=== PATIENT | female | born 1975 | race Hispanic/Latino ===

== ENCOUNTER → 2019-07-07 | Outpatient (CLI) | payer MEDICAID | END | disposition home or self-care (01) | LOC: RAH 09:15 | PROVIDERS: ATTEND Internal Medicine Gastroenterology | DX: K76.0 Fatty (change of) liver, not elsewhere classified (principal); R10.13 Epigastric pain | CPT/HCPCS: 76700 ==

== ENCOUNTER 2019-07-19 07:43 | Day surgery (SDC) | payer MEDICAID ==
[~2019-07-19] VITALS: Ht 160 cm; Wt 104.3 kg
[~2019-07-19 07:43] MED LIST: IBUP-2784 PO; SODIUM CHLORIDE 0.9% 1000ML 1,000 ML IV ONE
[2019-07-19 08:59] VITALS: BP 132/64
[2019-07-19] MEDS ORDERED: PROPOFOL 1000 MG/100 ML 100 ML IV ONE (09:22)
[2019-07-19] MEDS ORDERED: LIDOCAINE HCL 1% 20 ML VIAL ONE (09:22)
[2019-07-19] MEDS ORDERED: GLYCOPYRROLATE 0.2 MG/ML 5 ML VIAL ONE (09:33)
[2019-07-19 09:49] VITALS: BP 105/69
[2019-07-19 09:54] VITALS: BP 118/70
[2019-07-19 09:59] VITALS: BP 119/69
[2019-07-19 10:04] VITALS: BP 120/76
[2019-07-19 10:17] VITALS: BP 125/71
== END 2019-07-19 10:25 | disposition home or self-care (01) ==
LOC: ENDO 07:43 → DAH 07:43 → ENDO 10:25
PROVIDERS: ATTEND Internal Medicine
DX: K59.00 Constipation, unspecified (principal); K29.50 Unspecified chronic gastritis without bleeding; K31.7 Polyp of stomach and duodenum; K64.0 First degree hemorrhoids; K21.0 Gastro-esophageal reflux disease with esophagitis; F17.210 Nicotine dependence, cigarettes, uncomplicated; Z79.899 Other long term (current) drug therapy; Z72.89 Other problems related to lifestyle; Z82.49 Family history of ischemic heart disease and other diseases of the circulatory system; Z83.3 Family history of diabetes mellitus
CPT/HCPCS: 43239; 43251; 45380; 88305; A4215; A4221; A4222; A4223; A4606; A4620; A4663; J2704; J3490; J7030; 45378

== ENCOUNTER → 2019-11-11 | Outpatient (CLI) | payer MEDICAID ==
[~2019-11-11] MED LIST changes: -SODIUM CHLORIDE 0.9% 1000ML 1,000 ML IV ONE
== END | disposition home or self-care (01) ==
LOC: RAH 13:47
PROVIDERS: ATTEND Internal Medicine Gastroenterology
DX: R93.3 Abnormal findings on diagnostic imaging of other parts of digestive tract (principal); M47.815 Spondylosis without myelopathy or radiculopathy, thoracolumbar region
CPT/HCPCS: 74018

== ENCOUNTER → 2020-06-05 | Outpatient (CLI) | payer MEDICAID | END | disposition home or self-care (01) | LOC: SLP 23:30 | PROVIDERS: ATTEND Surgery | DX: G47.33 Obstructive sleep apnea (adult) (pediatric) (principal) | CPT/HCPCS: 95810 ==

== ENCOUNTER 2021-09-10 05:35 | Observation (INO) | payer MEDICAID ==
[2021-09-09 11:20] LABS: BASOPHILS % (AUTO) 0.8 % (0.0-5.0); EOSINOPHILS % (AUTO) 0.6 % (0.0-8.0); HEMATOCRIT 33.7 % (36-48); LYMPHOCYTES % (AUTO) 17.7 % (21.0-51.0); MEAN CORPUSCULAR HEMOGLOBIN 19.2 pg (27.0-33.0); MEAN CORPUSCULAR HGB CONC 30.6 g/dL (32.0-36.0); MEAN CORPUSCULAR VOLUME 62.9 fL (79-99); MONOCYTES % (AUTO) 4.3 % (3.0-13.0); NEUTROPHILS % (AUTO) 76.3 % (40.0-77.0); PLATELET COUNT (AUTO) 245 K/uL (130-400); RED BLOOD CELL COUNT(AUTO) 5.36 MIL/uL (4.00-5.50); RED CELL DISTRIBUTION WIDTH 15.4 % (11.0-15.5); WHITE BLOOD COUNT (AUTO) 6.3 K/uL (4.8-10.8)
[2021-09-09 11:27] VITALS: BP 14/54
[~2021-09-10] VITALS: Ht 160 cm; Wt 68.9 kg
[2021-09-10] VITALS (18 sets, daily range): BP systolic 86–119; BP diastolic 49–68
[~2021-09-10 05:35] MED LIST changes: +BISA5TAB12 PO; +CYAN-35 PO; +FOLI20CA PO; -IBUP-2784 PO; +LINA290C PO
[2021-09-10] MEDS ORDERED: CEFAZOLIN SODIUM 1 GM VIAL ONE (06:56)
[2021-09-10] MEDS ORDERED: LACTATED RINGERS 1000ML 1,000 ML IV ONE (06:56)
[2021-09-10] MEDS ORDERED: LEVO1TAB60 PO (07:36)
[2021-09-10] MEDS ORDERED: LEVO1TAB PO (07:36)
[2021-09-10] MEDS ORDERED: PROPOFOL 10 MG/ML 20ML VIAL IV ONE (08:33)
[2021-09-10] MEDS ORDERED: FENTANYL CITRATE PF 50 MCG/1 ML 2ML VIAL ONE ×3 (08:33→11:35)
[2021-09-10] MEDS ORDERED: LIDOCAINE PF 100MG/5ML (2%) SYRINGE 5ML ONE (08:33)
[2021-09-10] MEDS ORDERED: ROCURONIUM 10MG/1ML SYR 10 MG/ML ML ONE ×2 (08:34→10:09)
[2021-09-10] MEDS ORDERED: MIDAZOLAM HCL 1 MG/ML 2ML VIAL ONE (08:34)
[2021-09-10] MEDS ORDERED: GLYCOPYRROLATE 1 MG/5 ML SYRINGE ONE (08:50)
[2021-09-10] MEDS ORDERED: CEFAZOLIN SODIUM 2 GM VIAL IV ONE (08:55)
[2021-09-10] MEDS ORDERED: ONDANSETRON 4MG INJ ONE (09:00)
[2021-09-10] MEDS ORDERED: EPHEDRINE SULFATE 50 MG/ML AMPULE ONE (09:03)
[2021-09-10] MEDS ORDERED: NEOSTIGMINE 5MG/5ML SYR IV ONE (10:32)
[2021-09-10] MEDS ORDERED: KETOROLAC 30MG VIAL (30MG/ML) ONE (11:00)
[2021-09-10] MEDS: PROMETHAZINE HCL 25 MG/ML 1ML AMPULE IM PRN ×2 (12:49→19:51)
[2021-09-10] MEDS: MEPERIDINE-PF 75 MG/ML SYG IM PRN ×2 (12:49→19:53)
[2021-09-10] MEDS: DEXTROSE 5 %-0.45 % NACL 1,000 ML IV PRN ×2 (12:50→19:38)
[2021-09-10] MEDS ORDERED: BISACODYL 10 MG SUPP.RECT RC PRN (13:00)
[2021-09-10] MEDS ORDERED: ONDANSETRON 4MG INJ IVP PRN (13:00)
[2021-09-10] MEDS ORDERED: IBUPROFEN 600 MG TABLET PO PRN (13:00)
[2021-09-10] MEDS ORDERED: PROMETHAZINE HCL 25 MG/ML 1ML AMPULE IM PRN (13:00)
[2021-09-10] MEDS ORDERED: ACETAMINOPHEN WITH CODEINE 1 TAB TAB PO PRN (13:00)
[2021-09-10] MEDS: DOCUSATE SODIUM 100 MG CAP PO PRN (21:10)
[2021-09-10] MEDS: SIMETHICONE 80 MG TAB.CHEW PO PRN (21:10)
[2021-09-11] MEDS: DEXTROSE 5 %-0.45 % NACL 1,000 ML IV PRN (03:28)
[2021-09-11 03:30] VITALS: BP 100/62
[2021-09-11] MEDS: PROMETHAZINE HCL 25 MG/ML 1ML AMPULE IM PRN (03:42)
[2021-09-11] MEDS: MEPERIDINE-PF 75 MG/ML SYG IM PRN (03:43)
[2021-09-11 05:46] LABS: HEMATOCRIT 27.6 % (36-48); MEAN CORPUSCULAR HEMOGLOBIN 19.2 pg (27.0-33.0); MEAN CORPUSCULAR HGB CONC 30.1 g/dL (32.0-36.0); MEAN CORPUSCULAR VOLUME 63.9 fL (79-99); RED BLOOD CELL COUNT(AUTO) 4.32 MIL/uL (4.00-5.50); RED CELL DISTRIBUTION WIDTH 15.4 % (11.0-15.5); WHITE BLOOD COUNT (AUTO) 7.1 K/uL (4.8-10.8)
[2021-09-11 07:27] VITALS: BP 97/55
[2021-09-11] MEDS: DOCUSATE SODIUM 100 MG CAP PO PRN (08:30)
[2021-09-11] MEDS: SIMETHICONE 80 MG TAB.CHEW PO PRN (08:30)
[2021-09-11] MEDS: FERROUS SULFATE 325 MG TABLET.DR PO SCH ×2 (09:07→11:52)
[2021-09-11 11:42] VITALS: BP 95/48
== END 2021-09-11 13:05 | disposition home or self-care (01) ==
LOC: DAH 05:35 → WSH 05:36
PROVIDERS: ADMIT Obstetrics & Gynecology; ATTEND Obstetrics & Gynecology
DX: D25.9 Leiomyoma of uterus, unspecified (principal); Z20.822 Contact with and (suspected) exposure to COVID-19; N85.2 Hypertrophy of uterus; N73.6 Female pelvic peritoneal adhesions (postinfective); N83.202 Unspecified ovarian cyst, left side; R68.89 Other general symptoms and signs; N80.1 Endometriosis of ovary; N80.0 Endometriosis of uterus; Z79.899 Other long term (current) drug therapy
CPT/HCPCS: 36415 ×2; 57268; 58552; 84703; 85025; 85027; 86850; 86900; 86901; 87635; 96372 ×2; A4213; A4215 ×2; A4221; A4222; A4223; A4344; A4649 ×2; A4663; A6260; C1769 ×2; C9803; G0378 ×28; J0690 ×2; J1885; J2175 ×3; J2250; J2405; J2550 ×3; J2710; J3010 ×3; J3490 ×4; J7030; J7120; 88307; 88309; 88342; J2001; J2704

== ENCOUNTER 2022-04-06 01:32 | Emergency (ER) | payer MEDICAID ==
[~2022-04-06] VITALS: Ht 160 cm; Wt 65.8 kg
[~2022-04-06 01:32] MED LIST changes: +LEVO1TAB PO; +LEVO1TAB60 PO
[2022-04-06 02:01] LABS: APPEARANCE,URINE CLEAR (CLEAR); BILIRUBIN,URINE NEGATIVE (NEGATIVE); COLOR,URINE YELLOW (YELLOW); GLUCOSE, URINE (UA) NEGATIVE (NEGATIVE); KETONES,URINE 5 mg/dL (NEGATIVE); LEUKOCYTE ESTERASE ,URINE NEGATIVE (NEGATIVE); NITRATE,URINE NEGATIVE (NEGATIVE); PROTEIN,URINE NEGATIVE (NEGATIVE); UROBILINOGEN,URINE 0.2 mg/dL (0.2-1.0)
[2022-04-06 02:02] LABS: OCCULT BLOOD,URINE NEGATIVE (NEGATIVE)
[2022-04-06 02:11] LABS: BASOPHILS % (AUTO) 1.5 % (0.0-5.0); LYMPHOCYTES % (AUTO) 36.8 % (21.0-51.0); MEAN CORPUSCULAR HEMOGLOBIN 19.4 pg (27.0-33.0); MEAN CORPUSCULAR HGB CONC 30.9 g/dL (32.0-36.0); MEAN CORPUSCULAR VOLUME 62.9 fL (79-99); MONOCYTES % (AUTO) 8.1 % (3.0-13.0); NEUTROPHILS % (AUTO) 51.6 % (40.0-77.0); PLATELET COUNT (AUTO) 157 K/uL (130-400); RED BLOOD CELL COUNT(AUTO) 5.09 MIL/uL (4.00-5.50); RED CELL DISTRIBUTION WIDTH 15.5 % (11.0-15.5); WHITE BLOOD COUNT (AUTO) 4.6 K/uL (4.8-10.8)
[2022-04-06 02:19] LABS: CREATININE 0.6 mg/dL (0.5-1.5); POTASSIUM 4.3 mmol/L (3.5-5.1)
[2022-04-06 02:23] LABS: ALBUMIN 3.9 g/dL (3.5-5.0)
[2022-04-06] MEDS ORDERED: ONDANSETRON 4MG INJ ONE (02:30)
[2022-04-06] MEDS ORDERED: MAG/ALUM/SIMETH 30 ML UDCUP ONE (02:30)
[2022-04-06] MEDS ORDERED: LIDOCAINE HCL 2% VISCOUS 15 ML UDCUP ONE (02:30)
[2022-04-06] MEDS ORDERED: LIDOCAINE HCL 2% VISCOUS 15 ML UDCUP PO ONE (02:30)
[2022-04-06] MEDS ORDERED: 0.9%NACL 1000ML 1,000 ML IV ONE (02:30)
[2022-04-06] MEDS ORDERED: MAG/ALUM/SIMETH 30 ML UDCUP PO ONE (02:30)
[2022-04-06] MEDS ORDERED: KETOROLAC 15MG/ML VIAL (15MG/ML) IV ONE (02:30)
[2022-04-06] MEDS ORDERED: ONDANSETRON 4MG INJ IVP ONE (02:30)
[2022-04-06] MEDS ORDERED: KETOROLAC 15MG/ML VIAL (15MG/ML) ONE (02:30)
[2022-04-06] MEDS ORDERED: LINA290C PO (04:08)
[2022-04-06] MEDS ORDERED: TRAM1TAB2 PO (04:08)
[2022-04-06 04:17] VITALS: BP 124/75
== END 2022-04-06 04:33 | disposition home or self-care (01) ==
LOC: EDH 01:32
DX: K58.9 Irritable bowel syndrome, unspecified (principal); Z20.822 Contact with and (suspected) exposure to COVID-19; Z79.899 Other long term (current) drug therapy; Z98.890 Other specified postprocedural states
CPT/HCPCS: 99284; 74176; 96374; 87635; 96375; 80053; 83690; 85025; 81003; 36415; C9803; J7030; J2405; J1885

== ENCOUNTER → 2022-10-28 | Outpatient (CLI) | payer MEDICAID ==
[~2022-10-28] MED LIST changes: +BISA-151 PO; -BISA5TAB12 PO; +TRAM1TAB2 PO
[2022-10-28 13:03] LABS: CHOLESTEROL 162 mg/dL (<200); HDL CHOLESTEROL 90 mg/dL (35-85); LDL DIRECT 62 mg/dL (0-99); TRIGLYCERIDES 35 mg/dL (30-200)
== END | disposition home or self-care (01) ==
LOC: LAB 08:08
PROVIDERS: ATTEND Student in an Organized Health Care Education/Training Program
DX: E78.5 Hyperlipidemia, unspecified (principal)
CPT/HCPCS: 36415; 80061

== ENCOUNTER → 2023-06-26 | Outpatient (CLI) | payer MEDICAID ==
[~2023-06-26] MED LIST changes: +ASCO1TAB43 PO; +BARIATRIC MVI PO; +BIOTIN PO; -BISA-151 PO; -CYAN-35 PO; +CYAN10007 IJ; +ESTR0.9T2 PO; -FOLI20CA PO; +FOLIC ACID PO; +LAXATIVE PO; -LEVO1TAB PO; -LEVO1TAB60 PO; -TRAM1TAB2 PO; +[UNRECOGNIZED DRUG - OTHER] PO
== END | disposition home or self-care (01) ==
LOC: RAH 10:18
PROVIDERS: ATTEND Surgery
DX: R22.9 Localized swelling, mass and lump, unspecified (principal); R10.9 Unspecified abdominal pain
CPT/HCPCS: 76705

== ENCOUNTER → 2025-01-05 | Outpatient (CLI) | payer BC, MEDICAID ==
[~2025-01-05] MED LIST changes: +ASCO1TAB PO; -ASCO1TAB43 PO; +DIATR MEGLU/DIATRIZOATE SODIUM 30 ML BOTTLE ONE
--- NOTE | 2025-01-05 10:13 | HMCIMG ---
UPPER GI TRACT, WO KUB REASON: Epigastric pain/Bariatric surgery status. COMPARISON: None TECHNIQUE: Gastrografin upper GI series was performed. FINDINGS: There is no obstruction to the antegrade passage of Gastrografin from mouth through jejunum. A normal esophageal stripping wave is seen. No evidence of hydronephrosis is seen. Mild gastroesophageal reflux is seen to level of distal mid thoracic esophagus. Stomach is poorly distended with postop changes. Proximal small bowel loops are unremarkable IMPRESSION: . No obstruction is seen. Mild gastroesophageal reflux is seen to the level of the mid distal esophagus.
== END | disposition home or self-care (01) ==
LOC: RAH 07:30
PROVIDERS: ATTEND Internal Medicine Gastroenterology
DX: K21.9 Gastro-esophageal reflux disease without esophagitis (principal); K31.89 Other diseases of stomach and duodenum; R10.13 Epigastric pain; Z98.890 Other specified postprocedural states; Z98.84 Bariatric surgery status
CPT/HCPCS: 74240; Q9963